=== PATIENT | female | born 1995 | race Hispanic/Latino ===

== ENCOUNTER 2022-05-16 00:52 | Emergency (ER) | payer MEDICAID, OTHER ==
[~2022-05-16 00:52] MED LIST: PREN-154 PO
[2022-05-16 00:58] VITALS: BP 125/52
[2022-05-16] MEDS ORDERED: PRED20 PO (01:49)
[2022-05-16] MEDS ORDERED: FAMO40TA7 PO (01:49)
[2022-05-16] MEDS ORDERED: EPIN0.3P3 IJ (01:49)
[2022-05-16] MEDS ORDERED: FAMOTIDINE 20MG VIAL IV ONE ×2 (01:50→02:00)
[2022-05-16] MEDS ORDERED: SOLU-MEDROL 125MG VIAL ONE (01:50)
[2022-05-16] MEDS ORDERED: SOLU-MEDROL 125MG VIAL IVP ONE (02:00)
== END 2022-05-16 02:38 | disposition home or self-care (01) ==
LOC: EDH 00:52
DX: T78.00XA Anaphylactic reaction due to unspecified food, initial encounter (principal); R06.02 Shortness of breath; Z91.013 Allergy to seafood
CPT/HCPCS: 99284; 96374; 96375; J3490; J2930